=== PATIENT | male | born 1940 | race Caucasian/White ===

== ENCOUNTER 2017-12-28 10:05 | Emergency (ER) | payer MEDICARE, MEDICAID ==
[~2017-12-28] VITALS: Ht 172.7 cm; Wt 57.3 kg
[2017-12-28 10:10] VITALS: Ht 172.7 cm; Wt 57.3 kg
[2017-12-28] MEDS ORDERED: SPIRIVA18 MCG (10:12)
[2017-12-28] MEDS ORDERED: BREO ELLIPTA 21 EACH (10:12)
[2017-12-28] MEDS ORDERED: VENTOLIN HFA18 GM INH (10:13)
[2017-12-28] MEDS ORDERED: COREG 3.1253.125 MG PO (10:14)
[2017-12-28 10:47] LABS: BASOPHILS 0.1 % (0-2); EOSINOPHILS 0.2 % (0-7); HEMATOCRIT 41.8 % (42.0-54.0); HEMOGLOBIN 14.1 g/dL (13.5-17.5); IMMATURE GRANULOCYTES 0.3 % (0-5); LYMPHOCYTES 5.1 % (15-50); MCH 35.7 pg (26.0-34.0); MCHC 33.7 g/dL (31.0-37.0); MCV 105.8 fL (80.0-100.0); MEAN PLATELET VOLUME 9.9 fL (7.4-10.4); MONOCYTES 11.8 % (2-11); NEUTROPHILS 82.5 % (40-80); RBC 3.95 10x6/uL (4.20-6.10); RDW 14.2 % (11.5-14.5); WBC 9.4 10x3/uL (4.8-10.8)
[2017-12-28 10:49] LABS: PLATELET COUNT 222 10x3/uL (130-400)
[2017-12-28 11:02] LABS: ALBUMIN 3.3 g/dL (3.4-5.0); ALKALINE PHOSPHATASE 70 U/L (46-116); ALT (SGPT) 10 U/L (10-68); CALC OSMOLALITY 278 mosm/kg (275-300); CALCIUM 8.9 mg/dL (8.5-10.1); CHLORIDE - SERUM 103 mmol/L (98-107); CREATININE - SERUM 1.3 mg/dL (0.6-1.3); GLUCOSE 118 mg/dL (74-106); POTASSIUM - SERUM 3.9 mmol/L (3.5-5.1); PROTEIN - SERUM 8.8 g/dL (6.4-8.2); SODIUM 138 mmol/L (136-145); UREA NITROGEN 17 mg/dL (7-18); eGFR NON AFRICAN AMERICAN 57 mL/min (90-120)
[2017-12-28 11:10] LABS: PRO BNP 2047 pg/mL (0-450); TROPONIN-I < 0.017 ng/mL (0.000-0.060)
[2017-12-28] MEDS ORDERED: PREDNISONE20 MG PO (12:16)
[2017-12-28 12:34] VITALS: BP 131/71
== END 2017-12-28 12:34 | disposition home or self-care (01) ==
LOC: D.ER 10:05
PROVIDERS: Family Medicine
DX: J44.9 Chronic obstructive pulmonary disease, unspecified (principal); F17.200 Nicotine dependence, unspecified, uncomplicated

== ENCOUNTER 2018-11-02 13:08 | Emergency (ER) | payer MEDICARE, MEDICAID ==
[~2018-11-02] VITALS: Ht 172.7 cm; Wt 57.7 kg
[~2018-11-02 13:08] MED LIST: BREO ELLIPTA 21 EACH; COREG 3.1253.125 MG PO; PREDNISONE20 MG PO; SPIRIVA18 MCG; VENTOLIN HFA18 GM INH
[2018-11-02 13:14] VITALS: Ht 172.7 cm; Wt 57.7 kg
[2018-11-02] MEDS ORDERED: PROTONIX40 MG PO (13:16)
[2018-11-02] MEDS ORDERED: REQUIP1 MG PO (13:16)
[2018-11-02] MEDS ORDERED: CARAFATE1 G PO (13:17)
[2018-11-02 13:51] LABS: BASOPHILS 0 % (0-2); EOSINOPHILS 0 % (0-7); HEMATOCRIT 40.2 % (42.0-54.0); HEMOGLOBIN 13.8 g/dL (13.5-17.5); IMMATURE GRANULOCYTES 0.3 % (0-5); MCH 33.8 pg (26.0-34.0); MCHC 34.3 g/dL (31.0-37.0); MCV 98.5 fL (80.0-100.0); MEAN PLATELET VOLUME 9.9 fL (7.4-10.4); MONOCYTES 6.5 % (2-11); NEUTROPHILS 91.2 % (40-80); PLATELET COUNT 250 10x3/uL (130-400); RBC 4.08 10x6/uL (4.20-6.10); RDW 14.3 % (11.5-14.5); WBC 11.8 10x3/uL (4.8-10.8)
[2018-11-02 14:13] LABS: ALBUMIN 2.8 g/dL (3.4-5.0); ALKALINE PHOSPHATASE 64 U/L (46-116); ALT (SGPT) 18 U/L (10-68); BILIRUBIN - TOTAL 0.44 mg/dL (0.2-1.3); CALC OSMOLALITY 274 mosm/kg (275-300); CALCIUM 8.2 mg/dL (8.5-10.1); CARBON DIOXIDE 28.8 mmol/L (21.0-32.0); CHLORIDE - SERUM 101 mmol/L (98-107); CREATININE - SERUM 1.1 mg/dL (0.6-1.3); GLUCOSE 116 mg/dL (74-106); POTASSIUM - SERUM 3.6 mmol/L (3.5-5.1); PROTEIN - SERUM 7.5 g/dL (6.4-8.2); SODIUM 136 mmol/L (136-145); UREA NITROGEN 19 mg/dL (7-18); eGFR NON AFRICAN AMERICAN 69 mL/min (90-120)
[2018-11-02 14:23] LABS: CKMB 0.5 U/L (0.0-3.6); CREATINE KINASE 36 UL (21-232); TROPONIN-I < 0.017 ng/mL (0.000-0.060)
[2018-11-02] MEDS ORDERED: GUAIFENESI100 MG/5 M PO (15:27)
[2018-11-02] MEDS ORDERED: LEVOFLOXACIN500 MG PO (15:28)
[2018-11-02 16:50] VITALS: BP 158/67
== END 2018-11-02 16:29 | disposition home or self-care (01) ==
LOC: D.ER 13:08
PROVIDERS: Family Medicine
DX: J06.9 Acute upper respiratory infection, unspecified (principal); R05 Cough; R09.89 Other specified symptoms and signs involving the circulatory and respiratory systems; R53.1 Weakness; J44.9 Chronic obstructive pulmonary disease, unspecified; K21.9 Gastro-esophageal reflux disease without esophagitis